=== PATIENT | male | born 1965 | race Caucasian/White ===

== ENCOUNTER 2023-12-07 09:11 | Emergency (ER) | payer SELFPAY ==
[2023-12-07 09:13] VITALS: BP 163/99
--- NOTE | 2023-12-07 10:58 | ED.GENMED ---
History of Present Illness
General
Chief Complaint: Musculo-Skeletal Complaint
Source: patient
Exam Limitations: none
Time Seen by Provider: 12/07/23 09:20
Nursing documentation reviewed up to this point in time: agreed with
History of Present Illness
History of Present Illness:
58-year-old male past medical history of hypertension BPH anxiety presenting to the emergency department after a fall while working landing directly on his right wrist also having some shoulder pain. Pain mainly to the distal wrist on the ulnar
aspect. Denies additional injuries not on blood thinners no neck pain no headache no nausea vomiting numbness or weakness.
Review of Systems
Review of Systems
Allergies reviewed?: Yes
All Other Systems: ROS reviewed and negative except as documented in HPI and ROS
Phy Exam
Physical Exam
Physical Exam:
GENERAL: Alert , in no apparent distress
EYE: pupils equal and reactive
NECK: Supple, no significant adenopathy.
ENT: o/p clr, mmm.
CARDIAC: Regular rate and rhythm .
LUNGS: Clear breath sounds bilaterally, no acute respiratory distress, no wheezes/rales/rhonchi
ABDOMEN: Soft, without focal tenderness, no r/g, no cvat
NEUROLOGICAL: Alert and oriented, no focal neuro deficits
SKIN: Warm and dry, skin intact.
MUSCULOSKELETAL: Tenderness palpation to the ulnar aspect of the distal forearm and wrist. No tenderness to the hand good admeasurer strength no numbness or weakness no edema, well perfused.
PSYCH: Normal and appropriate interaction.
Course
Orders/Labs/Results
Orders:
Orders
12/07/23 09:17
Shoulder, Right, Trauma [CR Shoulder, Trauma - Right] Urgent
Comment:
Reason For Exam: fall
Wrist, Right 3 Views [CR Wrist - Right Min 3 Views] Urgent
Comment:
Reason For Exam: fall
12/07/23 11:33
Sling Right-Treatment ONCE
[place] Right-Treatment ONCE
Vital Signs
Initial and Last Documented VS:
Initial Vital Signs
Temp Pulse Resp BP Pulse Ox
98.8 F 71 18 163/99 96
12/07/23 09:13 12/07/23 09:13 12/07/23 09:13 12/07/23 09:13 12/07/23 09:13
Last Documented Vital Signs
Temp Pulse Resp BP Pulse Ox
98.8 F 64 16 152/98 98
12/07/23 09:13 12/07/23 11:37 12/07/23 11:37 12/07/23 11:37 12/07/23 11:37
MDM/Problems Addressed
MDM/Problems Addressed:
58-year-old male presenting to the emergency department today with concerns of right-sided wrist discomfort after trip and fall at work prior to arrival no additional injuries some mild pain to the shoulder. X-ray showing a distal ulnar styloid
fracture. Patient was splinted and will follow-up closely as an outpatient with orthopedics otherwise no additional emergent findings stable for discharge.
*Critical Care Note
Total Time (30-74mins, 75-104mins- exclusive of procedures): Not Applicable
ED Attending Note
-
Portions of this chart may have been created with voice recognition software.� Occasional wrong word or��sound alike� substitutions may have occurred due to the inherent limitations of voice recognition software.
Discharge Plan
Departure
Patient Disposition: Home (Routine Discharge)
Date of Disposition: 12/07/23
Time of Disposition: 10:59
Patient with high blood pressure during this ER visit?: No
Condition: Good
Covid-19: Not Applicable
Discharge Problem:
Fracture of ulnar styloid
Instructions: Wrist Fracture (DC)
Referrals:
Luke Peguero DO [Family Provider] -
Neto Rhodes MD [Active] - Follow up in 5-7 days
Stand Alone Forms: Return to Work
Activity Restrictions/Additional Instructions:
You came to the emergency department today with concerns of wrist discomfort after a fall. You are found to have an ulnar styloid fracture. Please leave the splint in place until orthopedic follow-up within 1 to 2 weeks. Return to the emergency
department for any worsening, new or concerning symptoms.
Interventions
Interventions:
*Risk Screen - Suicide Last Done: 12/07/23 09:15
*General Assessment Last Done: 12/07/23 09:15
*Neglect/Abuse Screening Last Done: 12/07/23 09:15
ED- Fall Risk Assessment Last Done: 12/07/23 09:36
*Nursing Disposition Last Done: 12/07/23 11:37
ED-Musculoskeletal Assessment Last Done: 12/07/23 09:36
ED- Neurological Assessment Last Done: 12/07/23 09:36
ED-Skin Assessment Last Done: 12/07/23 09:36
Discharge Date and Time
Discharge Date/Time: 12/07/23 11:35
Print Language: ESTONIAN
--- NOTE | 2023-12-07 11:36 | EDRN ---
Reviewed discharge instructions with patient. Verbalized understanding.Ambulated with steady gait to the lobby.
[2023-12-07 11:37] VITALS: BP 152/98
== END 2023-12-07 11:35 | disposition home or self-care (01) ==
LOC: EMR 09:11
PROVIDERS: EMERGENCY PHYSICIAN Emergency Medicine; FAMILY PHYSICIAN Family Medicine
DX: S52.611A Displaced fracture of right ulna styloid process, initial encounter for closed fracture (principal); W19.XXXA Unspecified fall, initial encounter; N40.0 Benign prostatic hyperplasia without lower urinary tract symptoms; I10 Essential (primary) hypertension
CPT/HCPCS: 99283; 29125; 73030; 73110